=== PATIENT | female | born 1970 | race Hispanic/Latino ===

== ENCOUNTER 2023-05-07 19:30 | Emergency (ER) | payer OTHER, SELFPAY ==
[2023-05-07] VITALS (14 sets, daily range): BP systolic 124–142; BP diastolic 87–97; PULSE 86–111; RESP 16–21; TEMP 37; O2SAT 97–100
--- NOTE | ~2023-05-07 | CT_ITS ---
EXAMINATION: CT abdomen pelvis wo con DATE: 05/07/2023 21:26 INDICATION: left flank tenderness TECHNIQUE: Computed tomography (CT) of the abdomen and pelvis was performed without intravenous contr ast. Automated exposure control and iterative reconstruction technique were employed. The dose-length product was 948.81 mGy-cm. COMPARISON: None. FINDINGS: Lower thorax: Unremarkable Liver: Normal. Biliary/Gallbladder: Gallbladder is normal. No bile duct dilation. Pancreas: No mass or duct dilation. Spleen: Normal. Adrenals:No mass. Kidneys: No mass, stone, or hydronephrosis. GI tract: No small or large bowel dilation. Normal appendix. Diverticulosis without diverticulitis. Mesentery/Peritoneum: No ascites, mass, or free air. Retroperitoneum: No mass. Pelvis: Normal urinary bladder. Surgically absent uterus. The left ovary is not confidently visualize d. Normal-appearing right ovary with simple cysts. The vaginal cuff is distended by heterogeneous and slightly hyperdense material to a size of approximately 4.6 x 6.6 cm. Soft Tissues: Soft tissues and body wall unremarkable. Bones: No acute osseous finding. IMPRESSION: Vaginal cuff is distended by heterogeneous and slightly hyperdense material that may represent hemato ma/clot. Active hemorrhage cannot be assessed without contrast. Developing abscess not excluded. Reviewed, dictated and finalized at location K. IMPRESSION: Vaginal cuff is distended by heterogeneous and slightly hyperdense material alison t may represent hematoma/clot. Active hemorrhage cannot be assessed without con trast. Developing abscess not excluded.
--- NOTE | ~2023-05-07 | CT_ITS ---
EXAMINATION: CT abdomen pelvis w con DATE: 05/07/2023 22:20 INDICATION: vaginal bleeding, pelvic hematoma TECHNIQUE: Computed tomography (CT) of the abdomen and pelvis was performed with 100 mL Omnipaque-350 intravenous contrast. Automated exposure control and iterative reconstruction technique were employe d. The dose-length product was 855.56 mGy-cm. COMPARISON: Noncontrast CT abdomen and pelvis, same date. FINDINGS: Lower thorax: Unremarkable Liver: Normal. Biliary/Gallbladder: Gallbladder is normal. No bile duct dilation. Pancreas: No mass or duct dilation. Spleen: Normal. Adrenals:No mass. Kidneys: Subcentimeter right lower pole hypodensity, too small to characterize but likely represents a cyst, partially obscured by motion. No suspicious mass, stone, or hydronephrosis. GI tract: No small or large bowel dilation. Normal appendix. Diverticulosis without diverticulitis. Mesentery/Peritoneum: No ascites, mass, or free air. Retroperitoneum: No mass. Pelvis: Normal right ovary with benign simple cysts and/or dominant follicles. Surgically absent uter us and left ovary. The urinary bladder is mostly empty, appearing otherwise normal. Heterogeneous mat erial previously distending the vaginal cuff is no longer visualized. No active extravasation. Soft Tissues: Soft tissues and body wall unremarkable. Bones: No acute osseous finding. IMPRESSION: Interval passage of clot from the vaginal cuff, which was confirmed clinically. No active extravasati on detected in this examination. No CT evidence of pelvic abscess. Otherwise, no acute abdominopelvic process detected. No CT finding that would explain left flank pain . Reviewed, dictated and finalized at location K. IMPRESSION: Interval passage of clot from the vaginal cuff, which was confirmed clinically. No active extravasation detected in this examination. No CT evidence of pelvic abscess. Otherwise, no acute abdominopelvic process detected. No CT finding that would e xplain left flank pain.
[2023-05-07 19:48] LABS: Basophils Percent Auto 0.5 % (0.2-1.2); Eosinophils Absolute Auto 0.2 K/mm3 (0-0.3); Eosinophils Percent Auto 2.5 % (0-4.4); Hematocrit 31.9 % (37.0-47.0); Hemoglobin 10.5 g/dL (12.0-15.0); Immature Granulocyte Absolute 0.05 K/mm3 (0.00-0.031); Immature Granulocyte Percent A 0.6 % (0-0.5); Lymphocytes Absolute Auto 1.05 K/mm3 (0.9-3.2); Lymphocytes Percent Auto 12.6 % (18.3-44.2); Mean Corpuscular HGB Conc 32.9 g/dl (32-36); Mean Corpuscular Hemoglobin 31.2 pg (26-34); Mean Corpuscular Volume 94.7 fl (80-100); Mean Platelet Volume 8.6 fl (7.4-10.4); Monocytes Absolute Auto 0.4 K/mm3 (0.1-0.6); Monocytes Percent Auto 5.1 % (2.6-8.5); Neutrophils Absolute Auto 6.6 K/mm3 (1.3-6.7); Neutrophils Percent Auto 78.7 % (45.5-73.1); Platelet Count Result 422 k/mm3 (150-375); Red Blood Count 3.37 M/mm3 (4.2-5.4); Red Cell Distribution Width 13.6 % (11.5-14.5); White Blood Count 8.4 K/mm3 (4.5-10.0)
--- NOTE | 2023-05-07 21:07 | ED.FEMALEGU ---
HPI - Female Genitourinary General Chief complaint: Vaginal Bleeding <Champ Anguiano PA-C - Last Filed: 05/08/23 00:00> Stated complaint: post op complications <SIMONE Paredes Last Filed: 05/08/23 00:00> Time Seen by Provider: 05/07/23 20:28 <SIMONE Paredes Last Filed: 05/08/23 00:00> Source: patient <SIMONE Paredes Last Filed: 05/08/23 00:00> Mode of arrival: ambulatory <SIMONE Paredes Last Filed: 05/08/23 00:00> Limitations: no limitations <SIMONE Paredes Last Filed: 05/08/23 00:00> History of Present Illness HPI Narrative: This is a 52-year-old female who presents to the ED with chief complaint of vaginal bleeding beginning at 10 PM yesterday evening. Reports she is about 5 weeks out from laparoscopic hysterectomy. She is here from [place] and visiting her boyfriend. She states her surgery was done in [place]. She states that she had similar bleeding about 2 weeks out from surgery seen by her surgeon who prescribed a couple of weeks of tranexamic acid. She states she feels like that to completely resolve until last night. She also reports having some left flank and left abdominal pain since last night. Reports she is going through more than 2 pads per hour. Reports bright red blood and clots passing. Reports feeling lightheaded but has not had any LOC. She has additional complaints of pain with bowel movements. Last BM this morning. Denies any GI bleeding symptoms. Denies fevers, chills, nausea, vomiting, chest pain, shortness of breath. <SIMONE Paredes Last Filed: 05/08/23 00:00> Related Data Allergies/Adverse reactions: Allergies Allergy/AdvReac Type Severity Reaction Status Date / Time hydrocodone [From Vicodin] Allergy Intermediate Hives Verified 05/07/23 22:01 chlorhexidine AdvReac Itching Verified 05/07/23 22:02 <SIMONE Paredes Last Filed: 05/08/23 00:00> Review of Systems Review of Systems: All systems as dictated in HPI <Champ Anguiano PA-C - Last Filed: 05/08/23 00:00> Exam Narrative: GENERAL: Well-appearing, well-nourished, and in no acute distress. HEAD: Normocephalic, atraumatic. EYES: PERRLA and EOMI. ENT: Nares clear, no rhinorrhea or epistaxis. Mucous membranes moist. Oropharynx without tonsillar hypertrophy exudate or other lesions. NECK: Supple. No adenopathy or masses. CHEST: No respiratory distress. Clear to auscultation. No wheezes rales or rhonchi HEART: Regular rate and rhythm. No murmur heard. Normal peripheral pulses. ABDOMEN: Left flank tenderness to palpation. Negative right flank tenderness. Soft, otherwise nontender, nondistended, normal active bowel sounds. MSK: Normal range of motion. No edema. SKIN: Warm, dry, no rash. NEURO: Alert and oriented x3. No focal deficits. PSYCH: Normal mood and affect. Pelvic exam done with female RN seaport planning manager present: Small amount of blood pooling in the vaginal vault. Able to clear the area with 3 swabs. No blood clots visualized. Cervix surgically removed. <Champ Anguiano PA-C - Last Filed: 05/08/23 00:00> Course Course Emergency Course: Consult 2300: Spoke with Dr. Barahona these PURCHASING/RECEIVING) who recommends giving 1 g of TXA IV here in the ED. He is fine with sending home on Bactrim for possible UTI. He would like to see the patient for follow-up tomorrow. Discussed the plan with the patient and she is understanding and agreeable. <Champ Anguiano PA-C - Last Filed: 05/08/23 00:00> MEDICAID BILLING CLERK/PA Physician Supervision I agree with midlevel documentation; I performed the medical decision making component of this evaluation. Briefly, pt p/w post op VB with clots, CT showing no active bleed at this time and on exam some pooled blood w/o hemorrhage. D/w OB who recommends TXA and close f/u arranged for pt, w/ return precautions. She is stable at time of dc and agreeable with plan <Leonarda Ellis MD - Last Filed: 05/08/23 00:12> Vital Signs Zara
[2023-05-07 21:14] LABS: Alanine Aminotransferase 25 U/L (6-35); Albumin Level 4.3 g/dL (3.5-5.1); Alkaline Phosphatase 79 U/L (38-126); Anion Gap 11 mmol/L (8-16); Aspartate Amino Transferase 26 U/L (14-36); Bilirubin,Total 0.3 mg/dL (0.2-1.3); Blood Urea Nitrogen 19 mg/dL (7-17); Calcium 8.7 mg/dL (8.4-10.2); Carbon Dioxide 22 mmol/L (22-30); Chloride 103 mmol/L (98-107); Estimated CRCL calculation 70 ml/min; Estimated Glomerular Filt Rate > 60; Glucose 167 mg/dL (65-110); Potassium 3.6 mmol/L (3.4-5.0); Sodium 136 mmol/L (137-145)
[2023-05-07] MEDS: SODIUM CHLORIDE 0.9% IV 1,000 ML 999 ML IV CONT (22:03)
[2023-05-07] MEDS: METOCLOPRAMIDE HCL INJ 10 MG/2 ML VIAL IV PUSH (22:09)
[2023-05-07 22:15] LABS: Bacteria Urine 1+ /hpf; Non Pathogenic Casts 0-2; RBC Urine >100 /hpf (0-2); Squamous Epithelial Cell Urine Occasional /hpf (Few); WBC Urine 21-50 /hpf
[2023-05-07 22:16] LABS: Prothrombin Time 13.6 Seconds (11.1-14.7)
[2023-05-07 22:17] LABS: Partial Thromboplastin Time 28.5 SECONDS (22.3-36.8)
[2023-05-07 22:23] LABS: Appearance Urine Cloudy (Clear); Bilirubin Urine Negative (Negative); Blood Urine 3+ (Negative); Color Urine Red (Yellow); Glucose Urine UA Negative (Negative); Ketones Urine Negative (Negative); Leukocyte Esterase Ur Negative LEU/UL (Negative); Nitrate Urine Negative (Negative); Protein Urine 3+ mg/dL (Negative); Specific Grav Ur 1.025 (1.001-1.035); Urobilinogen Urine 0.2 mg/dL (<2.0)
[2023-05-07 22:25] LABS: Add Urine Microscopic? YES
[2023-05-07] MEDS: cefTRIAXone 2 GM/NS 100 ML 2 GM/100 ML BAG IVPB (22:55)
[2023-05-07] MEDS: TRANEXAMIC ACID 1,000 MG/10 ML AMPUL 1000 MG IV PUSH (23:45)
[2023-05-08 00:15] VITALS: BP 135/92; PULSE 77; RESP 14; O2SAT 100
== END 2023-05-08 00:26 | disposition home or self-care (01) ==
PROVIDERS: Emergency Medicine; Emergency Provider Physician Assistant
DX: N39.0 Urinary tract infection, site not specified (principal); N93.9 Abnormal uterine and vaginal bleeding, unspecified
CPT/HCPCS: 36415; 74176; 74177; 80053; 81001; 85025; 85610; 85730; 86850; 86900; 86901; 87086; 87088; 96361; 96365; 96375; 99284; J0696; J2765; J7030; Q9967